=== PATIENT | female | born 2000 | race Caucasian/White ===

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

== ENCOUNTER 2021-02-19 20:47 | Emergency (ER) | payer OTHER ==
[~2021-02-19] VITALS: Ht 162.6 cm; Wt 67.2 kg
[2021-02-19 21:01] VITALS: BP 120/65
--- NOTE | 2021-02-19 23:21 | NUR ---
Pt not in lobby when called for room.
--- NOTE | 2021-02-20 00:05 | NUR ---
Pt not in lobby.
--- NOTE | 2021-02-20 00:15 | NUR ---
Pt not in lobby when called for room. [facility]BS
== END 2021-02-20 01:28 | disposition left against medical advice (07) ==
LOC: ED 23:59
DX: M25.532 Pain in left wrist (principal)
CPT/HCPCS: 99283